=== PATIENT | male | born 1930 | race Caucasian/White ===

== ENCOUNTER 2017-07-08 12:33 | Emergency (ER) | payer MEDICARE, OTHER ==
--- NOTE | 2017-07-08 14:09 | Emergency Department Record ---
History of Present Illness - General Chief Complaint: Fall Injury Stated Complaint: FALL/ R ELBOW INJURY Time Seen by Provider: 07/08/17 13:21 Source: Patient Mode of Arrival: Ambulatory Limitations: No limitations - History of Present Illness Initial Comments: pt tripped on a curb injuring r elbow,knee and shoulder. no loc MD Complaint: Fall Onset/Timin -: Hour(s) Fall From: Standing When Fall Occurred: Just prior to arrival Fall Witnessed: Yes, by family Place Fall Occurred: Street Loss of Consciousness: None Prolonged Down Time?: No Location - Extremities: Right: Shoulder, Elbow, Knee Severity scale (1-10): 2 Quality: Aching Context: Tripped/slipped Associated Symptoms: Denies - Kristina Coma Scale Eye Response: (4) Open spontaneously Motor Response: (6) Obeys commands Verbal Response: (5) Oriented Kristina Total: 15 - Related Data Home Medications Medication Instructions Recorded Confirmed Last Taken Bupropion HCl [Wellbutrin Sr] 150 mg PO DAILY 07/08/17 07/08/17 Unknown Divalproex Sodium [Depakote ER] 500 mg PO DAILY 07/08/17 07/08/17 Unknown Escitalopram Oxalate [Lexapro] 20 mg PO DAILY 07/08/17 07/08/17 Unknown Furosemide [Lasix] 20 mg PO DAILY 07/08/17 07/08/17 Unknown Mirabegron [Myrbetriq] 25 mg PO DAILY 07/08/17 07/08/17 Unknown Omeprazole [Prilosec] 20 mg PO DAILY 07/08/17 07/08/17 Unknown Pramipexole Di-HCl [Pramipexole 0.75 mg PO QHS 07/08/17 07/08/17 Unknown Dihydrochloride] Previous Rx's Medication Instructions Recorded Hydrocodone/Acetaminophen [[place] 1 each PO QID #10 tablet 07/08/17 5-325 Tablet] Allergies Allergy/AdvReac Type Severity Reaction Status Date / Time fentanyl Allergy ALTERED Verified 07/08/17 12:58 MENTAL STATUS Travel Screening - Travel/Exposure Within Last 30 Days Have you traveled within the last 30 days?: No Review of Systems Reviewed: No additional complaints except as noted below Constitutional: Reports: As per HPI. Denies: Chills, Fever, Malaise, Night sweats, Weakness, Weight change Eyes: Reports: As per HPI. Denies: Eye discharge, Eye pain, Photophobia, Vision change ENT: Reports: As per HPI. Denies: Congestion, Dental pain, Ear pain, Epistaxis , Hearing loss, Throat pain Respiratory: Reports: As per HPI. Denies: Cough, Dyspnea, Hemoptysis, Stridor, Wheezes Cardiovascular: Reports: As per HPI. Denies: Arrhythmia, Chest pain, Dyspnea on exertion, Edema, Murmurs, Orthopnea, Palpitations, Paroxysmal nocturnal dyspnea, Rheumatic Fever, Syncope Endocrine: Reports: As per HPI. Denies: Fatigue, Heat or cold intolerance, Polydipsia, Polyuria Gastrointestinal: Reports: As per HPI. Denies: Abdominal pain, Constipation, Diarrhea, Hematemesis, Hematochezia, Melena, Nausea, Vomiting Genitourinary: Reports: As per HPI. Denies: Dysuria, Frequency, Hematuria, Incontinence, Retention, Testicular pain, Testicular mass, Urgency Musculoskeletal: Reports: As per HPI. Denies: Arthralgia, Back pain, Gout, Joint swelling, Myalgia, Neck pain Skin: Reports: As per HPI. Denies: Bruising, Change in color, Change in hair/ nails, Lesions, Pruritus, Rash Neurological: Reports: As per HPI. Denies: Abnormal gait, Confusion, Headache, Numbness, Paresthesias, Seizure, Tingling, Tremors, Vertigo, Weakness Psychiatric: Reports: As per HPI. Denies: Anxiety, Auditory hallucinations, Depression, Homicidal thoughts, Suicidal thoughts, Visual hallucinations Hematological/Lymphatic: Reports: As per HPI. Denies: Anemia, Blood Clots, Easy bleeding, Easy bruising, Swollen glands Past Medical History - SOCIAL HISTORY Smoking Status: Never smoker Alcohol Use: None Drug Use: None - RESPIRATORY Hx Respiratory Disorders: No - CARDIOVASCULAR Hx Cardio Disorders: No - NEURO Hx Neuro Disorders: Yes Hx TIA: Yes - GI Hx GI Disorders: No - Hx Genitourinary Disorders: Yes Hx Kidney Stones: Yes Hx Prostate Problems: Yes - ENDOCRINE Hx Endocrine Disorders: No - MUSCULOSKELETAL Hx Musculoskeletal Disorders: Yes Hx Arthritis: Yes - PSYCH Hx Psych Problems: No - HEMATOLOGY/ONCOLOGY Hx Hematology/Oncology Disorders: No Family Medical History Any Significant Family History?: No Physical Exam - General General Appearance: Alert, Oriented x3, Cooperative, Mild distress - Head Head exam: Normal inspection - Eye Eye exam: Normal appearance, PERRL, EOMI Pupils: Normal accommodation - ENT ENT exam: Normal exam, Mucous membranes moist, Normal external ear exam, Normal orophraynx Ear exam: Normal external inspection. negative: External canal tenderness Nasal Exam: Normal inspection. negative: Discharge, Sinus tenderness Mouth exam: Normal external inspection, Tongue normal Teeth exam: Normal inspection. negative: Dental caries Throat exam: Normal inspection. negative: Tonsillar erythema, Tonsillar exudate - Neck Neck exam: Normal inspection, Full ROM. negative: Tenderness - Respiratory Respiratory exam: Normal lung sounds bilaterally. negative: Respiratory distress - Cardiovascular Cardiovascular Exam: Regular rate, Normal rhythm, Normal heart sounds - GI/Abdominal GI/Abdominal exam: Soft, Normal bowel sounds. negative: Tenderness - Rectal Rectal exam: Deferred - exam: Deferred - Extremities Extremities exam: Joint swelling, Normal capillary refill, Tenderness. negative : Full ROM Image of Full Body: 1 - skin tear, swelling, tender, enlarged bursa [chronic but bigger then usual] 2 - tender 3 - tender - Back Back exam: Reports: Normal inspection, Full ROM. Denies: Muscle spasm, Rash noted, Tenderness - Neurological Neurological exam: Alert, CN II-XII intact, Normal gait, Oriented X3 - Psychiatric Psychiatric exam: Normal affect, Normal mood - Skin Skin exam: Dry, Intact, Normal color, Warm Course Vital Signs 07/08/17 13:01 Temperature 97.6 F Pulse Rate [ 75 Pulse Ox Probe] Respiratory 15 Rate Blood Pressure 134/78 [Left Arm] Pulse Ox 99 Disposition Disposition: Discharge Clinical Impression: Patella fracture Qualifiers: Encounter type: initial encounter Fracture type: closed Fracture morphology: longitudinal Fracture alignment: nondisplaced Laterality: right Qualified Code(s ): S82.024A - Nondisplaced longitudinal fracture of right patella, initial encounter for closed fracture Contusion Qualifiers: Encounter type: initial encounter Contusion area: upper arm Laterality: right Qualified Code(s): S40.021A - Contusion of right upper arm, initial encounter Disposition: Home, Self-Care Condition: (1) Good Instructions: Fall Prevention for Older Adults (ED), Patellar Fracture (ED), Contusion in Adults (ED) Additional Instructions: follow up with family doctor and orthopedic doctor. ice and elevate. return sooner if worse. Prescriptions: Hydrocodone/Acetaminophen [[place] 5-325 Tablet] 1 each PO QID #10 tablet Forms: Patient Portal Access Quality - Quality Measures Quality Measures: N/A - Blood Pressure Screening Does Patient Have Any of the Following: No Blood Pressure Classification: Pre-Hypertensive BP Reading Systolic Measurement: 134 Diastolic Measurement: 78 Screening for High Blood Pressure: < Pre-Hypertensive BP, F/U Documented > [ [id number]] Pre-Hypertensive Follow-up Interventions: Follow-up with rescreen every year.
[2017-07-08] MEDS ORDERED: HYDROCODONE/APAP 5/325MG TABLET PO ONE (14:28)
--- NOTE | 2017-07-08 19:52 | RADIOLOGY REPORT ---
EXAM: ELBOW, RIGHT 3 VIEWS HISTORY: PAIN. TECHNIQUE: Three views right elbow. COMPARISON: None. ENCOUNTER: Initial. FINDINGS: Osteopenia. No convincing evidence for an acute fracture or dislocation, however, there are advanced degenerative changes throughout the elbow with severe joint space narrowing, spur formation, and probable loose body formation. Questionable joint effusion with indistinct fat pads. Posterior soft tissue swelling. IMPRESSION: OSTEOPENIA WITH ADVANCED DEGENERATIVE CHANGES. QUESTIONABLE JOINT EFFUSION. JOB NUMBER: [id number] [facility]
--- NOTE | 2017-07-08 19:55 | RADIOLOGY REPORT ---
EXAM: KNEE, RIGHT 4 VIEWS HISTORY: PAIN. TECHNIQUE: Four-view right knee. COMPARISON: None. ENCOUNTER: Initial. FINDINGS: Osteopenia. Advanced tricompartmental degenerative changes with tricompartmental narrowing and spur formation. Small joint effusion. Multiple loose bodies are suspected. On the sunrise view, there is a lucency associated with the lateral patellar facet suspicious for nondisplaced patella fracture. Correlate with site of pain. Moderate prepatellar edema. No other evidence for an acute fracture or dislocation. IMPRESSION: OSTEOPENIA WITH ADVANCED DEGENERATIVE CHANGES. QUESTIONABLE NONDISPLACED FRACTURE OF THE LATERAL PATELLAR FACET. PREPATELLAR EDEMA AND SOFT TISSUE SWELLING. LOOSE BODY FORMATION. PROBABLE SMALL JOINT EFFUSION. JOB NUMBER: [id number] [facility]
--- NOTE | 2017-07-08 19:58 | RADIOLOGY REPORT ---
EXAM: SHOULDER, RIGHT HISTORY: FALL. TECHNIQUE: Three-view right shoulder. COMPARISON: None. ENCOUNTER: Initial. FINDINGS: Osteopenia. Deformity of the scapula, which may relate to old trauma. Negative for acute fracture or dislocation. Degenerative changes of the acromioclavicular and glenohumeral joints. High-riding humeral head, likely reflecting chronic rotator cuff tear. IMPRESSION: NO ACUTE OSSEOUS ABNORMALITY. PROBABLE OLD TRAUMA OF THE SCAPULA. OSTEOPENIA. DEGENERATIVE CHANGE. FINDINGS SUSPICIOUS FOR CHRONIC ROTATOR CUFF TEAR. JOB [facility]BER: [id number] [facility]
== END 2017-07-08 15:01 | disposition home or self-care (01) ==
LOC: ER 12:33
DX: S82.024A Nondisplaced longitudinal fracture of right patella, initial encounter for closed fracture (principal); S50.311A Abrasion of right elbow, initial encounter; S40.021A Contusion of right upper arm, initial encounter; W01.10XA Fall on same level from slipping, tripping and stumbling with subsequent striking against unspecified object, initial encounter; Y92.410 Unspecified street and highway as the place of occurrence of the external cause
CPT/HCPCS: 99283; 99284